=== PATIENT | male | born 1990 | race Two or more races ===

== ENCOUNTER 2024-06-27 13:31 | Emergency (ER) | payer SELFPAY ==
[~2024-06-27] VITALS: Ht 175.3 cm; Wt 95.3 kg
[2024-06-27 13:34] VITALS: BP 161/86; TEMP 98.3; O2SAT 99
[2024-06-27] MEDS: ACETAMINOPHEN 325 MG TABLET PO ONE (14:00)
[2024-06-27] MEDS: METOCLOPRAMIDE HCL 10 MG TABLET PO ONE (14:00)
[2024-06-27] MEDS ORDERED: METOCLOPRAMIDE HCL 10 MG TABLET ONE (14:01)
[2024-06-27] MEDS ORDERED: ACETAMINOPHEN 325 MG TABLET ONE (14:01)
== END 2024-06-27 14:47 | disposition home or self-care (01) ==
LOC: ER 13:42
DX: F41.9 Anxiety disorder, unspecified (principal); R03.0 Elevated blood-pressure reading, without diagnosis of hypertension; R11.0 Nausea; R42 Dizziness and giddiness; R53.1 Weakness; Z60.2 Problems related to living alone
CPT/HCPCS: 99283; J8597